=== PATIENT | female | born 1980 | race African-American/Black ===

== ENCOUNTER 2016-11-16 19:52 | Emergency (ER) | payer OTHER ==
[~2016-11-16] VITALS: Ht 185.4 cm; Wt 102.1 kg
[~2016-11-16 19:52] MED LIST: AZIT250T6 PO; BENZ200C47 PO; HYDR-971 PO; METR500T PO; PRED50TA PO; PROAIR HFA8.5 GM INH
[2016-11-16 20:10] VITALS: BP 139/78
[2016-11-16] MEDS ORDERED: NAPR500T8 PO (20:26)
[2016-11-16] MEDS ORDERED: AMOX875T PO (20:26)
[2016-11-16] MEDS ORDERED: ACET-704 PO (20:26)
--- NOTE | 2016-11-16 20:27 | PHYS DOC ---
Past Medical History Past Medical History: Anxiety, Bipolar, Depression, Other Additional Past Medical Histor: OVARIAN CYST, ectopic x2 Past Surgical History: Tubal ligation Additional Past Surgical Histo: UMBILICAL HERNIA REPAIR; L KNEE ARTHROSCOPY Alcohol Use: None Drug Use: None Adult General Chief Complaint Chief Complaint: DENTAL PROBLEM HPI HPI Patient is a 36 year old female who presents with mild dental pain of the right lower gum that began yesterday. Patient denies any fever or trismus. Review of Systems Review of Systems Constitutional: Denies fever or chills [] Eyes: Denies change in visual acuity, redness, or eye pain [] HENT: Dental pain Musculoskeletal: Denies back pain or joint pain [] Integument: Denies rash or skin lesions [] Neurologic: Denies headache, focal weakness or sensory changes [] Endocrine: Denies polyuria or polydipsia [] Allergies Allergies Allergies Coded Allergies Type Severity Reaction Last Updated Verified No Known Drug Allergies 07/05/15 No Physical Exam Physical Exam Constitutional: Well developed, well nourished, no acute distress, non-toxic appearance. [] HENT: Normocephalic, atraumatic, bilateral external ears normal, oropharynx moist, no oral exudates, nose normal. [] Patient has scattered infected dental caries especially on the right lower gum. No dental abscess. Skin: Warm, dry, no erythema, no rash. [] Back: No tenderness, no CVA tenderness. [] Extremities: No tenderness, no cyanosis, no clubbing, ROM intact, no edema. [] Neurologic: Alert and oriented X 3, normal motor function, normal sensory function, no focal deficits noted. [] Psychologic: Affect normal, judgement normal, mood normal. [] Current Patient Data Vital Signs Vital Signs Date Time Temp Pulse Resp B/P (MAP) Pulse Ox O2 Delivery O2 Flow Rate FiO2 11/16/16 20:10 98.4 81 18 99 Room Air 98.4 EKG EKG [] Radiology/Procedures Radiology/Procedures [] Course & Med Decision Making Course & Med Decision Making Pertinent Labs and Imaging studies reviewed. (See chart for details) Patient was discharged with amoxicillin and Tylenol 3 as well as naproxen for infected dental caries. Follow-up with her dentist as soon as possible Afshan Disclaimer Dragon Disclaimer This electronic medical record was generated, in whole or in part, using a voice recognition dictation system. Departure Departure Impression: Primary Impression: Dentalgia Additional Impression: Infected dental caries Disposition: 01 HOME, SELF-CARE Condition: STABLE Referrals: NO PCP (PCP) Follow-up with your dentist as soon as possible Patient Instructions: Dental Caries Additional Instructions: You were seen for infected dental caries. Take the antibiotics as ordered. Ensure you complete them. Follow-up with your dentist as soon as possible Scripts Naproxen (NAPROXEN) 500 Mg Tablet.dr 1 TAB PO BID, #60 TAB 2 Refills Prov: ILEANA SILVER APRN 11/16/16 Acetaminophen With Codeine (TYLENOL WITH CODEINE #3 TABLET) 1 Each Tablet 1 TAB PO PRN Q6HRS Y for PAIN, #30 TAB Prov: ILEANA SILVER APRN 11/16/16 Amoxicillin (AMOXICILLIN) 875 Mg Tablet 1 TAB PO BID, #20 TAB Prov: ILEANA SILVER APRN 11/16/16 Problem Qualifiers ILEANA SILVER APRN Nov 16, 2016 20:27
== END 2016-11-16 20:34 | disposition home or self-care (01) ==
LOC: ER 19:52
DX: K04.7 Periapical abscess without sinus (principal); K02.9 Dental caries, unspecified; F31.9 Bipolar disorder, unspecified
CPT/HCPCS: 99283

== ENCOUNTER 2017-06-27 17:12 | Emergency (ER) | payer OTHER ==
[2017-06-27] MEDS: IPRATRPIUM/ALBUTEROL 0.5/2.5MG 3 ML NEBU. NEB (18:21)
== END 2017-06-27 18:53 | disposition home or self-care (01) ==
LOC: ER 18:53
DX: J20.9 Acute bronchitis, unspecified (principal); F31.9 Bipolar disorder, unspecified
CPT/HCPCS: 94640; 99283; J7620

== ENCOUNTER 2018-04-18 18:04 | Emergency (ER) | payer OTHER ==
[~2018-04-18] VITALS: Ht 188 cm; Wt 77.1 kg
[~2018-04-18 18:04] MED LIST changes: +ACET-704 PO; +ALBU2.5V8 INH; +AMOX875T PO; +BENZ100C PO; +HYDR-3164 PO; -HYDR-971 PO; +NAPR500T8 PO; +PRED-220 PO; -PROAIR HFA8.5 GM INH
[2018-04-18 19:24] VITALS: BP 113/71
[2018-04-18] MEDS ORDERED: DOXY100T PO (20:08)
[2018-04-18] MEDS ORDERED: ALBU2.5V8 INH (21:05)
--- NOTE | 2018-04-18 22:04 | PHYS DOC ---
Past Medical History Past Medical History: Anxiety, Bipolar, Depression, Other Additional Past Medical Histor: OVARIAN CYST, ectopic x2 Past Surgical History: Tubal ligation Additional Past Surgical Histo: UMBILICAL HERNIA REPAIR; L KNEE ARTHROSCOPY Alcohol Use: None Drug Use: None Adult General Chief Complaint Chief Complaint: FLU SYMPTOM HPI HPI Patient is a 38 year old female is presenting with chief complaint of bronchitis symptoms, sinus congestion she feels pain in the right facial area in the right sinus area. Symptoms have been going on for 4 days she is a smoker symptoms are moderate worsening with time no relief with [id number] agents she has had fever as well. Review of Systems Review of Systems Constitutional: D Cardiovascular: No additional information not addressed in HPI [] GI: Denies abdominal pain, nausea, vomiting, bloody stools or diarrhea [] : Denies dysuria or hematuria [] Musculoskeletal: Denies back pain or joint pain [] Integument: Denies rash or skin lesions [] Neurologic: All other systems were reviewed and found to be within normal limits, except as documented in this note. Allergies Allergies Allergies Coded Allergies Type Severity Reaction Last Updated Verified No Known Drug Allergies 07/05/15 No Physical Exam Physical Exam Constitutional: Well developed, well nourished, no acute distress, non-toxic appearance. [] HENT: Normocephalic, atraumatic, bilateral external ears normal, oropharynx moist, no oral exudates, nose normal. []Right maxillary sinus tenderness is noted Eyes: PERRLA, EOMI, conjunctiva normal, no discharge. [] Neck: Normal range of motion, no tenderness, supple, no stridor. [] Cardiovascular:Heart rate regular rhythm, no murmur [] Lungs & Thorax: Coarse bilateral breath sounds no overt wheezing Abdomen: Bowel sounds normal, soft, no tenderness, no masses, no pulsatile masses. [] Skin: Warm, dry, no erythema, no rash. [] Back: No tenderness, no CVA tenderness. [] Extremities: No tenderness, no cyanosis, no clubbing, ROM intact, no edema. [] Neurologic: Alert and oriented X 3, normal motor function, normal sensory function, no focal deficits noted. [] Psychologic: Affect normal, judgement normal, mood normal. [] Current Patient Data Vital Signs Vital Signs Date Time Temp Pulse Resp B/P (MAP) Pulse Ox O2 Delivery O2 Flow Rate FiO2 1/8/19 19:24 100.7 86 20 113/71 (85) 100 Room Air 100.7 EKG EKG [] Radiology/Procedures Radiology/Procedures [] Course & Med Decision Making Course & Med Decision Making Pertinent Labs and Imaging studies reviewed. (See chart for details) []Bronchitis and sinusitis smoking history UNILateral maxillary sinus tenderness on antibiotics will be given Dragon Disclaimer Dragon Disclaimer This electronic medical record was generated, in whole or in part, using a voice recognition dictation system. Departure Departure Impression: Primary Impression: Bronchitis Disposition: HOME, SELF-CARE Condition: STABLE Referrals: NO PCP (PCP) Patient Instructions: Bronchitis, [id number] Scripts Albuterol Sulfate (Proair Hfa) 8.5 Gm Hfa.aer.ad 1 PUFF INH PRN Q6HRS PRN for SHORTNESS OF BREATH, #1 INHALER Prov: NEHAL WILLIAMSON MD 04/18/18 Doxycycline Hyclate (DOXYCYCLINE HYCLATE) 100 Mg Tablet 1 TAB PO BID, #14 TAB Prov: NEHAL WILLIAMSON MD 04/18/18 NEHAL WILLIAMSON MD Apr 18, 2018 22:04
== END 2018-04-18 20:16 | disposition home or self-care (01) ==
LOC: ER 18:04
DX: J40 Bronchitis, not specified as acute or chronic (principal); F31.9 Bipolar disorder, unspecified; F17.200 Nicotine dependence, unspecified, uncomplicated
CPT/HCPCS: 99283

== ENCOUNTER 2020-12-10 11:10 | Emergency (ER) | payer OTHER ==
[~2020-12-10] VITALS: Ht 185.4 cm; Wt 100.4 kg
[~2020-12-10 11:10] MED LIST changes: +DOXY100T PO
[2020-12-10 11:59] VITALS: BP 140/85
--- NOTE | 2020-12-10 12:31 | PHYS DOC ---
Past Medical History Past Medical History: Anxiety, Bipolar, Depression, Other Additional Past Medical Histor: OVARIAN CYST, ectopic x2 (ILEANA SILVER TECHNICAL REP) Past Surgical History: Tubal ligation Additional Past Surgical Histo: UMBILICAL HERNIA REPAIR; L KNEE ARTHROSCOPY (ZENYILEANA Jj TECHNICAL REP) Smoking Status: Current Every Day Smoker Alcohol Use: None Drug Use: None (ILEANA SILVER TECHNICAL REP) General Adult EDM: Chief Complaint: DENTAL PROBLEM HPI: HPI: Patient is a 40 year old female presenting today complaining of 9 out of 10 right upper and lower gum pain symptoms for 2 days. Patient denies any fever or trismus. Describes the pain as sharp and constant worse on eating cold items. She states she has called her dentist and they could not get her in anytime soon. (ILEANA SILVER TECHNICAL REP) Review of Systems: Review of Systems: Constitutional: Denies fever or chills. [] HENT: Reports dental pain. Denies nasal congestion or sore throat. [] Musculoskeletal: Denies back pain or joint pain. [] Integument: Denies rash. [] Neurologic: Denies headache, focal weakness or sensory changes. [] Psychiatric: Denies depression or anxiety. [] (ILEANA SILVER TECHNICAL REP) Heart Score: C/O Chest Pain: N/A Risk Factors: Risk Factors: DM, Current or recent (<one month) smoker, HTN, HLP, family history of CAD, obesity. Risk Scores: Score 0 - 3: 2.5% MACE over next 6 weeks - Discharge Home Score 4 - 6: 20.3% MACE over next 6 weeks - Admit for Clinical Observation Score 7 - 10: 72.7% MACE over next 6 weeks - Early Invasive Strategies (ILEANA SILVER TECHNICAL REP) Allergies: Allergies: Allergies Coded Allergies Type Severity Reaction Last Updated Verified No Known Drug Allergies 12/10/20 No (ILEANA SILVER TECHNICAL REP) Physical Exam: PE: Constitutional: Well developed, well nourished, no acute distress, non-toxic appearance. [] HENT: Normocephalic, atraumatic, bilateral external ears normal, oropharynx moist, no oral exudates, nose normal. [] Right upper molars and premolars with broken infected teeth. Cavities also noted to the right lower gum molars. No dental abscess. No gum erythema. Skin: Warm, dry, no erythema, no rash. [] Back: No tenderness, no CVA tenderness. [] Extremities: No tenderness, no cyanosis, no clubbing, ROM intact, no edema. [] Neurologic: Alert and oriented X 3, normal motor function, normal sensory function, no focal deficits noted. [] Psychologic: Affect normal, judgement normal, mood normal. [] (ILEANA SILVER APRN) Current Patient Data: Vital Signs: Vital Signs Date Time Temp Pulse Resp B/P (MAP) Pulse Ox O2 Delivery O2 Flow Rate FiO2 12/10/20 11:59 98.4 63 18 140/85 (85) 100 Room Air 98.4 (ILEANA SILVER APRN) EKG: EKG: [] (ILEANA SILVER APRN) Radiology/Procedures: Radiology/Procedures: [] (ILEANA SILVER APRN) Course & Med Decision Making: Course & Med Decision Making Pertinent Labs and Imaging studies reviewed. (See chart for details) This is a 40-year-old female patient presented to the ED today with dental infection discharged with pcn, naproxen and short supply of hydrocodone for pain. Follow-up with dentist. (ILEANA SILVER APRN) Course & Med Decision Making I have reviewed and was available for consultation in the emergency department for this patient that was seen by midlevel provider. Agree with plan. Jossue Parker DO (JOSSUE PARKER DO) Afshan Disclaimer: Afshan Disclaimer: This electronic medical record was generated, in whole or in part, using a voice recognition dictation system. (ILEANA SILVER APRN) Departure Departure Impression: Primary Impression: Infected dental caries Additional Impression: Dentalgia Disposition: HOME / SELF CARE / HOMELESS Condition: STABLE Referrals: NO PCP (PCP) Follow-up with your dentist as soon as you can Patient Instructions: Dental Caries Additional Instructions: You were evaluated in the emergency room for dental infection. Take the prescribed antibiotics until completed. Please follow-up with your own dentist as soon as you can Scripts Naproxen (NAPROXEN) 500 Mg Tablet 1 TAB PO BID for pain, #20 TAB 0 Refills Prov: ILEANA SILVER APRN 12/10/20 Hydrocodone Bit/Acetaminophen (HYDROCODONE-APAP 5-325 ) 1 Tab Tablet 1 TAB PO PRN Q6HRS PRN for PAIN, #10 TAB 0 Refills Prov: ILEANA SILVER TECHNICAL REP 12/10/20 Penicillin V Potassium (PENICILLIN V POTASSIUM) 500 Mg Tablet 1 TAB PO BID, #20 TAB Prov: ILEANA SILVER TECHNICAL REP 12/10/20 ILEANA SILVER APRN Dec 10, 2020 12:31 JOSSUE PARKER DO Dec 10, 2020 15:17
[2020-12-10] MEDS ORDERED: PENI500T PO (12:37)
[2020-12-10] MEDS ORDERED: HYDR-2761 PO (12:37)
[2020-12-10] MEDS ORDERED: NAPR-514 PO (12:37)
== END 2020-12-10 12:42 | disposition home or self-care (01) ==
LOC: ER 11:10
DX: K04.7 Periapical abscess without sinus (principal); K08.89 Other specified disorders of teeth and supporting structures
CPT/HCPCS: 99283

== ENCOUNTER 2021-03-11 21:06 | Emergency (ER) | payer OTHER ==
[~2021-03-11] VITALS: Ht 185.4 cm; Wt 90.0 kg
[~2021-03-11 21:06] MED LIST changes: +HYDR-2761 PO; +NAPR-514 PO; +PENI500T PO
--- NOTE | 2021-03-11 23:47 | PHYS DOC ---
Past Medical History Past Medical History: Anxiety, Bipolar, Depression, Other Additional Past Medical Histor: OVARIAN CYST, ectopic x2 Past Surgical History: Knee Replacement, Other Additional Past Surgical Histo: hernia repair Smoking Status: Current Every Day Smoker Alcohol Use: None Drug Use: None General Adult EDM: Chief Complaint: FLU SYMPTOM HPI: HPI: Patient is a 41 year old female who presents to the ED today complaining of cough, nasal congestion, mild headache, symptoms began 3 days ago. Patient states she got exposed to somebody else who had similar symptoms. She is worried she could have an infection. She states she received all her Covid vaccines. Denies any fever. Review of Systems: Review of Systems: Constitutional: Denies fever or chills. [] Eyes: Denies change in visual acuity. [] HENT: Reports nasal congestion, denies sore throat. [] Respiratory: Reports cough, denies shortness of breath. [] Cardiovascular: Denies chest pain or edema. [] GI: Denies abdominal pain, nausea, vomiting, bloody stools or diarrhea. [] : Denies dysuria. [] Musculoskeletal: Denies back pain or joint pain. [] Integument: Denies rash. [] Neurologic: Reports headache, denies focal weakness or sensory changes. [] [] Psychiatric: Denies depression or anxiety. [] Heart Score: C/O Chest Pain: N/A Risk Factors: Risk Factors: DM, Current or recent (<one month) smoker, HTN, HLP, family history of CAD, obesity. Risk Scores: Score 0 - 3: 2.5% MACE over next 6 weeks - Discharge Home Score 4 - 6: 20.3% MACE over next 6 weeks - Admit for Clinical Observation Score 7 - 10: 72.7% MACE over next 6 weeks - Early Invasive Strategies Allergies: Allergies: Allergies Coded Allergies Type Severity Reaction Last Updated Verified No Known Drug Allergies 12/10/20 No Physical Exam: PE: Constitutional: Well developed, well nourished, no acute distress, non-toxic appearance. [] HENT: Normocephalic, atraumatic, bilateral external ears normal, oropharynx moist, no oral exudates, patient sounds congested nasally Eyes: PERRLA, EOMI, conjunctiva normal, no discharge. [] Neck: Normal range of motion, no tenderness, supple, no stridor. [] Cardiovascular:Heart rate regular rhythm, no murmur [] Lungs & Thorax: Bilateral breath sounds clear to auscultation [] Abdomen: Bowel sounds normal, soft, no tenderness, no masses, no pulsatile masses. [] Skin: Warm, dry, no erythema, no rash. [] Back: No tenderness, no CVA tenderness. [] Extremities: No tenderness, no cyanosis, no clubbing, ROM intact, no edema. [] Neurologic: Alert and oriented X 3, normal motor function, normal sensory function, no focal deficits noted. [] Psychologic: Affect normal, judgement normal, mood normal. [] Current Patient Data: Vital Signs: Vital Signs Date Time Temp Pulse Resp B/P (MAP) Pulse Ox O2 Delivery O2 Flow Rate FiO2 03/11/21 23:42 99.1 84 19 137/76 (96) 95 Room Air 99.1 EKG: EKG: [] Radiology/Procedures: Radiology/Procedures: []PROCEDURE: CHEST AP ONLY EXAM: XR CHEST 1V 03/11/2021 11:48 PM CLINICAL INDICATION: Cough COMPARISON: None TECHNIQUE: AP upright view the chest FINDINGS: The heart is normal size. Lungs are adequately expanded. Suspect mild left basilar opacities. No pleural effusion or pneumothorax. No acute osseous a bnormality. IMPRESSION: Suspect mild opacities in the left lung base, which could be due to atelectasis or pneumonia. Electronically signed by: Delma Felix MD (03/12/2021 12:31 AM) [facility] DICTATED and SIGNED BY: DELMA FELIX MD DATE: 03/12/21 [id number] Course & Med Decision Making: Course & Med Decision Making Pertinent Labs and Imaging studies reviewed. (See chart for details) This is a 41-year-old female patient presenting today with cough and nasal congestion, symptoms for 3 days, she got exposed to somebody with flulike symptoms. Vitals on arrival to the ED temperature 99.1, heart rate 84, respiration 18 on room air, blood pressure 137/76, O2 sats 95% and above on room air. Chest x-ray interpreted by radiologist was noted for suspect mild opacities in the left lung base, which could be due to atelectasis or pneumonia. Patient to be started on doxycycline. Positive for COVID-19. Instructed to quarantine herself for 10 days. Good hand hygiene emphasized. Tylenol Motrin for pain or fever. Provided return precautions. Afshan Disclaimer: Afshan Disclaimer: This electronic medical record was generated, in whole or in part, using a voice recognition dictation system. Departure Departure Impression: Primary Impression: Left lower lobe pneumonia Qualified Codes: J18.9 - Pneumonia, unspecified organism Additional Impressions: URI (upper respiratory infection) Qualified Codes: J06.9 - Acute upper respiratory infection, unspecified Lab test positive for detection of COVID-19 virus Disposition: HOME / SELF CARE / HOMELESS Condition: STABLE Referrals: NO PCP (PCP) follow up with your doctor in one week Patient Instructions: Pneumonia, Adult Additional Instructions: You were evaluated in the emergency room, you are positive for COVID-19 as well as pneumonia. Take the prescribed antibiotics as ordered until completed. Take Tylenol or Motrin for pain or fever. Push fluids, maintain good hand hygiene, quarantine yourself for 10 days Scripts Doxycycline Hyclate (DOXYCYCLINE HYCLATE) 100 Mg Tablet 1 TAB PO BID, #14 TAB Prov: ILEANA SILVER PURCHASE PRICE ANALYST 03/12/21 ILEANA SILVER PURCHASE PRICE ANALYST Mar 11, 2021 23:47
--- NOTE | 2021-03-12 00:34 | RAD ---
EXAM: XR CHEST 1V 03/11/2021 11:48 PM CLINICAL INDICATION: Cough COMPARISON: None TECHNIQUE: AP upright view the chest FINDINGS: The heart is normal size. Lungs are adequately expanded. Suspect mild left basilar opaciti es. No pleural effusion or pneumothorax. No acute osseous abnormality. IMPRESSION: Suspect mild opacities in the left lung base, which could be due to atelectasis or pneum onia. Electronically signed by: Delma Felix MD (03/12/2021 12:31 AM) [facility]
[2021-03-12 00:45] VITALS: BP 138/80
[2021-03-12] MEDS ORDERED: DOXY100T PO (00:49)
[2021-03-12] MEDS: DOXYCYCLINE HYCLATE 100 MG TABLET PO ONE (00:52)
== END 2021-03-12 00:56 | disposition home or self-care (01) ==
LOC: ER 21:06
DX: U07.1 COVID-19 (principal); J18.9 Pneumonia, unspecified organism; J06.9 Acute upper respiratory infection, unspecified; F17.200 Nicotine dependence, unspecified, uncomplicated
CPT/HCPCS: 71045; 87426; 99284